=== PATIENT | female | born 1975 | race African-American/Black ===

== ENCOUNTER → 2016-11-14 | Outpatient (CLI) | payer BC ==
--- NOTE | 2016-11-14 14:06 | KCIC ---
PROCEDURE AP single-view pelvis and five view lumbar spine HISTORY Pelvic and bilateral hip pain for 1 year, lower back pain for 1 year. COMPARISON None FINDINGS AP pelvis No evidence of acute fracture or bone destruction. Mild bone hypertrophy about the hip joints without asymmetric joint space loss. Mild enthesophytes are identified. Tiny right pelvis calcification compatible with a phlebolith. Lumbar spine Vertebral body height is maintained. There is mild marginal spurring, slightly greater at the L3-L4 level. There may be minimal anterolisthesis of L3 on L4, about 1 or 2 millimeters. Mild right convexity lumbar scoliosis. No aggressive bone destruction. Mild facet joint degenerative changes. No evidence of spondylolysis. IMPRESSION 1. Mild lumbar spondylosis. 2. No acute findings identified on the AP pelvis. Electronically signed by: Vince Perkins MD (Nov 14, 2016 14:05:36)
== END | disposition home or self-care (01) ==
LOC: KCIC 13:06
PROVIDERS: ATTEND Internal Medicine Rheumatology
DX: M54.5 Low back pain (principal); M25.552 Pain in left hip; M25.551 Pain in right hip; M47.896 Other spondylosis, lumbar region
CPT/HCPCS: 72110; 72170